=== PATIENT | female | born 1945 | race Caucasian/White ===

== ENCOUNTER → 2020-08-22 10:21 | Outpatient (BNVA) | payer MEDICARE, SELFPAY | PROVIDERS: PCP Internal Medicine; Visit Provider Surgery Vascular Surgery | DX: I83.12 Varicose veins of left lower extremity with inflammation (principal); Z13.6 Encounter for screening for cardiovascular disorders; Z87.891 Personal history of nicotine dependence | CPT/HCPCS: 99202 ==

== ENCOUNTER 2020-09-03 11:21 | Outpatient (REF) | payer MEDICARE, SELFPAY ==
--- NOTE | ~2020-09-03 | US_ITS ---
EXAMINATION: BILATERAL LOWER EXTREMITY VENOUS ULTRASOUND (Reflux Exam) CLINICAL INDICATION: Venous reflux COMPARISON: Bilateral lower extremity duplex ultrasound on 11/03/2019 TECHNIQUE: Color flow triplex imaging and compression Doppler was performed to evaluate both the deep and the superficial systems of the bilateral lower extremity. To evaluate the superficial system, the examination was performed in the upright position. Color-flow Doppler ultrasound and compression ultrasound were utilized. In addition, maneuvers were utilized to demonstrate reflux. FINDINGS: RIGHT LOWER EXTREMITY: 1. DEEP VENOUS DOPPLER ULTRASOUND: Common Femoral Vein: Compressible, normal respiratory variation and augmented flow. Femoral vein: Compressible, normal color flow and augmentation. Popliteal Vein: Compressible, normal augmentation. Deep Reflux: There is no evidence of reflux in the deep system in either the common femoral vein or the popliteal vein. There is no evidence of a Aguirre's cyst. 2. SUPERFICIAL VENOUS DOPPLER ULTRASOUND: GREAT SAPHENOUS VEIN: Saphenofemoral junction: 0.6 cm; No evidence of reflux. Proximal thigh: 0.6 cm; No evidence of reflux. Mid thigh: 0.4 cm; No evidence of reflux. Above knee: 0.3 cm; 564 ms At knee: 0.4 cm; No evidence of reflux. Below knee: 0.3 cm; No evidence of reflux. Mid calf: 0.3 cm; No evidence of reflux. Ankle: 0.3 cm; No evidence of reflux. DUPLICATED GREAT SAPHENOUS VEIN: None SMALL SAPHENOUS VEIN: Saphenopopliteal junction: 0.3 cm; No evidence of reflux. Mid calf: 0.4 cm; No evidence of reflux. Distal calf: 0.3 cm; 640 ms VEIN OF GIACOMINI: None Imaged. PERFORATORS: 0.2 cm uniformer in the distal calf VARICOSITIES: 0.4 cm varicose vein with reflux in the mid thigh LEFT LOWER EXTREMITY: 1. DEEP VENOUS DOPPLER ULTRASOUND: Common Femoral Vein: Compressible, normal respiratory variation and augmented flow. Femoral vein: Compressible, normal color flow and augmentation. Popliteal Vein: Compressible, normal augmentation. Deep Reflux: There is no evidence of reflux in the deep system in either the common femoral vein or the popliteal vein. There is no evidence of a Aguirre's cyst. 2. SUPERFICIAL VENOUS DOPPLER ULTRASOUND: GREAT SAPHENOUS VEIN: Saphenofemoral junction: 0.7 cm; No evidence of reflux. Proximal thigh: 0.4 cm; No evidence of reflux. Mid thigh: 0.2 cm; No evidence of reflux. Above knee: 0.3 cm; No evidence of reflux. At knee: 0.2 cm; No evidence of reflux. Below knee: 0.1 cm; No evidence of reflux. Mid calf: Not visualized Ankle: 0.3 cm; No evidence of reflux. DUPLICATED GREAT SAPHENOUS VEIN: None SMALL SAPHENOUS VEIN: Saphenopopliteal junction: 0.2 cm; No evidence of reflux. Mid calf: 0.3 cm; No evidence of reflux. Distal calf: Not visualized VEIN OF GIACOMINI: None Imaged. PERFORATORS: 0.2 cm uniformer in the mid thigh VARICOSITIES: 0.3 cm varicose vein in the distal thigh US/US venous duplex LE BI IMPRESSION: 1. No DVT or deep venous reflux. 2. Minimal reflux in the bilateral superficial systems. 3. Small bilateral perforators and varicose veins.
== END 2020-09-03 11:22 | disposition home or self-care (01) ==
LOC: HO.US 11:21
PROVIDERS: Visit Provider Surgery Vascular Surgery
DX: I83.12 Varicose veins of left lower extremity with inflammation (principal); I83.893 Varicose veins of bilateral lower extremities with other complications
CPT/HCPCS: 93970

== ENCOUNTER 2020-09-04 08:18 | Outpatient (REF) | payer MEDICARE, SELFPAY ==
--- NOTE | ~2020-09-04 | US_ITS ---
EXAMINATION: ABDOMINAL AORTIC ANEURYSM ULTRASOUND CLINICAL INFORMATION: Family history of abdominal aortic aneurysm COMPARISON: None TECHNIQUE: Doppler, color and grayscale evaluation of the abdominal aorta and common iliac arteries FINDINGS: There is evidence of atherosclerotic disease with vessel wall calcification. The abdominal aorta is normal in caliber. No aneurysm is seen. The proximal abdominal aorta measures 2.2 x 2.1 cm, mid 1.7 x 1.9 cm and distal 2 x 1.7 cm in AP and transverse dimension. Aortic peak velocity is normal measuring 99 cm/s. The visualized common iliac arteries are normal in caliber. The right measures 1 x 1.3 cm and the left 1.2 x 1.3 cm in AP and transverse dimension. US/US abdominal aortic aneurysm IMPRESSION: Normal caliber abdominal aorta. No aneurysm seen.
== END 2020-09-04 08:19 | disposition home or self-care (01) ==
LOC: HO.US 08:18
PROVIDERS: Visit Provider Surgery Vascular Surgery
DX: I71.4 Abdominal aortic aneurysm, without rupture (principal)
CPT/HCPCS: 76706

== ENCOUNTER → 2020-09-05 15:00 | Outpatient (BNVA) | payer MEDICARE, SELFPAY | PROVIDERS: PCP Internal Medicine; Visit Provider Surgery Vascular Surgery | DX: I83.12 Varicose veins of left lower extremity with inflammation (principal); Z87.891 Personal history of nicotine dependence; Z79.899 Other long term (current) drug therapy | CPT/HCPCS: 99212 ==